=== PATIENT | female | born 1980 | race Caucasian/White ===

== ENCOUNTER 2018-01-21 02:57 | Emergency (ER) | END 2018-01-21 07:20 | disposition home or self-care (01) ==

== ENCOUNTER 2018-05-23 11:47 | Emergency (ER) | END 2018-05-23 19:22 | disposition home or self-care (01) ==

== ENCOUNTER 2018-09-03 09:23 | Emergency (ER) | payer MEDICAID ==
[~2018-09-03] VITALS: Wt 71.3 kg
[~2018-09-03 09:23] MED LIST: ALPR0.25 PO
[2018-09-03 09:29] VITALS: BP 133/74; PULSE 77; RESP 18
[2018-09-03] MEDS ORDERED: ONDANSETRON (ODT) 4 MG TAB ODT STA (10:08)
[2018-09-03] MEDS ORDERED: ONDA4TAB14 PO (10:11)
[2018-09-03] MEDS ORDERED: ACET325T33 PO (10:11)
--- NOTE | 2018-09-03 10:13 | ERD ---
ER Documentation Chief Complaint Chief Complaint anxiety, nause x 1 days HPI 37-year-old Martiniquais speaking female at approximately 2 weeks gestation who presents to the ED with complaints of "feeling anxious ". Patient denies any palpitations or shortness of breath or chest pain however she does complain of a mild throbbing right-sided headache with some nausea. She has had no vomiting episodes thus far. No changes in vision, numbness, tingling, focal weakness. No trauma. Patient initially brought her daughter here to be seen, but decided to check in herself after developing a gradually worsening headache this morning. She has a history of migraine headaches and does not take anything medications for this. Denies any vaginal discharge, bleeding, suprapubic pain. No other complaints. ROS All systems reviewed and are negative except as per history of present illness. Medications Home Meds Active Scripts Ondansetron (Ondansetron Odt) 4 Mg Tab.rapdis, 4 MG PO Q6H PRN for NAUSEA AND/OR VOMITING, #10 TAB Prov:DISHIGRIKIAN,ZEPYUR N PA-C 09/03/18 Acetaminophen* (Tylenol*) 325 Mg Tablet, 1 TAB PO Q6 PRN for PAIN AND OR ELEVATED TEMP, #20 TAB Prov:DISHIGRIKIAN,ZEPYUR N PA-C 09/03/18 Alprazolam* (Xanax*) 0.25 Mg Tablet, 0.25 MG PO Q8H PRN for ANXIETY, #6 TAB Prov:FABRICE ANDERSEN MD 05/23/18 Allergies Allergies: Coded Allergies: No Known Allergy (Unverified , 09/03/18) PMhx/Soc History of Surgery: Yes (c section x1 ) Anesthesia Reaction: No Hx Neurological Disorder: No Hx Respiratory Disorders: No Hx Cardiac Disorders: No Hx Psychiatric Problems: No Hx Miscellaneous Medical Probl: Yes (diagnosed with polycystic ovarian disease ) Hx Alcohol Use: No Hx Substance Use: No Hx Tobacco Use: No Smoking Status: Never smoker FmHx Family History: No diabetes Physical Exam Vitals Vital Signs Date Temp Pulse Resp B/P (MAP) Pulse Ox O2 O2 Flow FiO2 Time Delivery Rate 09/03/18 98.0 77 18 133/74 100 09:29 (93) Physical Exam Const: No acute distress Head: Atraumatic Eyes: Normal Conjunctiva ENT: Normal External Ears, Nose and Mouth. Neck: Full range of motion. No meningismus. Resp: Clear to auscultation bilaterally Cardio: Regular rate and rhythm, no murmurs Abd: Soft, non tender, non distended. Normal bowel sounds Skin: No petechiae or rashes Back: No midline or flank tenderness Ext: No cyanosis, or edema Neuro: M/S: Alert and oriented Face: EOMI, face and pharynx with normal sensation and function Motor: Normal strength throughout Sensation: Normal sensation throughout Speech: Normal Cerebel: Normal coordination Normal gait Normal finger to nose Psych: Normal Mood and Affect Results 24 hrs Current Medications Medications Dose Sig/Jared Start Time Status Last (Trade) Ordered Route PRN Stop Time Admin Dose Reason Admin 650 mg ONCE ONCE 09/03/18 DC 09/03/18 Acetaminophen PO 10:30 10:14 (Tylenol 09/03/18 10:30 Tab) Ondansetron 4 mg ONCE STAT 09/03/18 DC 09/03/18 HCl (Zofran ODT 10:08 10:14 Odt) 09/03/18 10:09 Procedures/MDM 37 yo F at approximately 2 week's gestation who presents with a dull right sided headache, similar to her previous migraine headaches. She has no focal neurological deficits on physical exam. Headache is unlikely related to serious etiology. She does not have any clinical signs or symptoms to suggest subarachnoid hemorrhage, acute vertebral or carotid dissection, intracranial mass, epidural or subdural hematoma, CVA, encephalitis or meningitis. Patient's vitals are stable and patient can be managed with close outpatient follow-up. Her symptoms improved status post Tylenol and Zofran. She is tolerating PO and will discharged home with prescription for both. Patient was advised to follow- up with her primary care in the next 48 hours. Return to ED with any worsening symptoms. PRESCRIPTIONS: Tylenol, Zofran FOLLOW UP: With PCP in 2-3 days Departure Diagnosis: Primary Impression: Headache Headache type: unspecified Headache chronicity pattern: acute headache Intractability: not intractable Qualified Codes: R51 - Headache Additional Impression: Nausea Condition: Stable Patient Instructions: Self-Care for Headaches [facility] Usted se leonardo hecho un examen mdico de control que le indica que no est en kaylee condicin que requiera tratamiento urgente en el Departamento de Emergencia. Un estudio ms profundo y el tratamiento de almodovar condicin pueden esperar sin ningn riesgo hasta que usted sea atendida/o en el consultorio de almodovar mdico o kaylee clnica. Es responsabilidad suya arreglar kaylee capo para el seguimiento del ashwin. MANEJO DE CONDICIONES NO URGENTES EN EL FUTURO 1) Si usted tiene un mdico de atencin primaria: Usted debera llamar a almodovar mdico de atencin primaria antes de venir al departamento de emergencia. Despus de las horas de consultorio, almodovar doctor o almodovar asociado/a est disponible por telfono. El mdico o enfermero de rogelio en el servicio telefnico puede asesorarle por jennifer medio para atender el problema, o c aso contrario se puede programar kaylee capo. 2) Si usted no tiene un mdico de atencin primaria: Llame al mdico o clnica de referencia que aparece abajo fermin las horas de consultorio para hacer kaylee capo para que le vean. CLINICAS: [facility] [phone] [facility] [phone] [facility]. [facility] [phone] [facility]. [facility] [phone] [facility]. [place] [phone] [facility]. [phone] [address] Additional Instructions: Thank you very much for allowing us to participate in your care. Your health and safety is our top priority at [facility]. Call your primary care doctor TOMORROW for an appointment during the next 2-4 days and bring all the information and medications prescribed. If the symptoms get worse and your provider is unavailable, return to the Emergency Department immediately. ADOLFO DELONG PA-C Sep 03, 2018 10:13
[2018-09-03] MEDS ORDERED: ACETAMINOPHEN 325 MG TAB PO ONE (10:30)
== END 2018-09-03 10:28 | disposition home or self-care (01) ==
LOC: FTE 09:23
DX: O99.89 Other specified diseases and conditions complicating pregnancy, childbirth and the puerperium (principal); R11.0 Nausea; R51 Headache; Z3A.01 Less than 8 weeks gestation of pregnancy
CPT/HCPCS: Z7610 ×2; 99283